=== PATIENT | female | born 1940 | race Caucasian/White ===

== ENCOUNTER 2022-05-02 18:23 | Inpatient (IN) | payer MEDICAID ==
[~2022-05-02] VITALS: Ht 152.4 cm; Wt 46.7 kg
[2022-05-02 18:42] VITALS: BP_SYST 128
[2022-05-02] MEDS ORDERED: NACL 0.9% 1,000 ML IV ONE (20:45)
[2022-05-02] MEDS ORDERED: cefTRIAXone 1 GM IVPB PREMIX 50 ML IV ONE (21:30)
[2022-05-02] MEDS ORDERED: NACL 0.9% 500 ML IV ONE (21:30)
[2022-05-02 21:39] LABS: BASOPHILS % (AUTO) 0.3 % (0.0-2.0); EOSINOPHILS # (AUTO) 0.1 K/uL (0.0-0.4); EOSINOPHILS % (AUTO) 0.9 % (0.0-4.0); HEMATOCRIT 27.2 % (36-48); HEMOGLOBIN 8.3 g/dL (12.0-16.0); LYMPHOCYTES # (AUTO) 1.4 K/uL (1.0-5.5); LYMPHOCYTES % (AUTO) 11.7 % (20.5-51.5); MEAN CORPUSCULAR HEMOGLOBIN 29 pg (27-31); MEAN CORPUSCULAR HGB CONC 31 % (32-36); MEAN CORPUSCULAR VOLUME 94 fL (79.0-98.0); MONOCYTES # (AUTO) 0.3 K/uL (0.0-1.0); MONOCYTES % (AUTO) 2.7 % (1.7-9.3); NEUTROPHILS # (AUTO) 9.9 K/uL (1.8-7.7); NEUTROPHILS % (AUTO) 84.4 % (40.0-70.0); PLATELET COUNT (AUTO) 308 K/uL (130-430); RED BLOOD CELL COUNT(AUTO) 2.89 MIL/uL (4.2-6.2); RED CELL DISTRIBUTION WIDTH 18.4 % (9.0-15.0); WHITE BLOOD COUNT (AUTO) 11.7 K/uL (4.8-10.8)
[2022-05-02 21:55] LABS: ALANINE AMINOTRANSFERASE 30 U/L (12-78); ALBUMIN 1.8 g/dL (3.4-4.8); ANION GAP 16 (5-15); ASPARTATE AMINOTRANSFERASE 17 U/L (10-37); CALCIUM 8.9 mg/dL (8.4-11.0); CREATININE 2.23 mg/dL (0.55-1.30); GLUCOSE 293 mg/dL (70-99); TOTAL BILIRUBIN 0.1 mg/dL (0.0-1.0); UREA NITROGEN, BLOOD 66 mg/dL (8-21)
[2022-05-02 22:02] LABS: CHLORIDE 129 mmol/L (98-107)
[2022-05-02] MEDS ORDERED: DIPHENHYDRAMINE INJ 50 MG/ML VIAL IVP ONE (22:15)
[2022-05-02] MEDS ORDERED: LORazepam 2 MG/ML VIAL IVP ONE (22:15)
[2022-05-03] MEDS ORDERED: cefTRIAXone 1 GM IVPB PREMIX 50 ML IV ONE (01:29)
[2022-05-03] MEDS: KCL 20 mEq in D5/0.45NS 1000mL 1,000 ML IV SCH ×2 (02:04→22:15)
[2022-05-03] MEDS ORDERED: ASCO500T20 PO (05:02)
[2022-05-03] MEDS ORDERED: VITD2000 PO (05:02)
[2022-05-03] MEDS ORDERED: AMLO2.5T2 PO (05:02)
[2022-05-03] MEDS ORDERED: LACT10SO6 PO (05:02)
[2022-05-03] MEDS ORDERED: MEGE20TA3 PO (05:02)
[2022-05-03] MEDS ORDERED: LIP40 PO (05:02)
[2022-05-03] MEDS ORDERED: ASPI-1393 PO (05:02)
[2022-05-03] MEDS ORDERED: ARGI1POW13 PO (05:02)
[2022-05-03] MEDS ORDERED: BENA-6 PO (05:02)
[2022-05-03] MEDS ORDERED: SENN8.6T19 PO (05:10)
[2022-05-03] MEDS ORDERED: ACET325T PO (05:10)
[2022-05-03] MEDS ORDERED: LEVO25TA2 PO (05:10)
[2022-05-03] MEDS ORDERED: POLY17PO4 PO (05:10)
[2022-05-03] MEDS ORDERED: AMIN30LI2 PO (05:10)
[2022-05-03] MEDS ORDERED: SPIR25TA6 PO (05:10)
[2022-05-03] MEDS ORDERED: TRAM50TA2 PO (05:10)
[2022-05-03] MEDS ORDERED: TAMS-11 PO (05:10)
[2022-05-03] MEDS ORDERED: CEFEPIME 1 GM/VIAL (MAXIPIME) ONE (08:18)
[2022-05-03] MEDS ORDERED: CEFEPIME 1 GM in D5W 50 ML IV SCH (09:00)
[2022-05-03] MEDS: CEFEPIME 1 GM in D5W 50 ML IV SCH (10:19)
[2022-05-03] MEDS ORDERED: hydrALAZINE HCL 20 MG/ML VIAL IVP PRN (19:15)
[2022-05-03 20:00] VITALS: BP_SYST 110
[2022-05-03] MEDS: ENOXAPARIN SODIUM 30 MG/0.3 ML SYRINGE SUBCUT SCH (22:16)
[2022-05-04] VITALS: BP_SYST 126
[2022-05-04] MEDS: KCL 20 mEq in D5/0.45NS 1000mL 1,000 ML IV SCH ×2 (05:27→15:30)
[2022-05-04 05:59] LABS: BASOPHILS # (AUTO) 0.1 K/uL (0.0-0.2); BASOPHILS % (AUTO) 0.7 % (0.0-2.0); EOSINOPHILS # (AUTO) 0.3 K/uL (0.0-0.4); EOSINOPHILS % (AUTO) 2.8 % (0.0-4.0); HEMATOCRIT 27.2 % (36-48); HEMOGLOBIN 8.2 g/dL (12.0-16.0); LYMPHOCYTES # (AUTO) 1.3 K/uL (1.0-5.5); LYMPHOCYTES % (AUTO) 13.6 % (20.5-51.5); MEAN CORPUSCULAR HEMOGLOBIN 29 pg (27-31); MEAN CORPUSCULAR HGB CONC 30 % (32-36); MEAN CORPUSCULAR VOLUME 96 fL (79.0-98.0); MONOCYTES # (AUTO) 0.3 K/uL (0.0-1.0); MONOCYTES % (AUTO) 3.6 % (1.7-9.3); NEUTROPHILS # (AUTO) 7.4 K/uL (1.8-7.7); NEUTROPHILS % (AUTO) 79.3 % (40.0-70.0); PLATELET COUNT (AUTO) 235 K/uL (130-430); RED BLOOD CELL COUNT(AUTO) 2.83 MIL/uL (4.2-6.2); RED CELL DISTRIBUTION WIDTH 18.9 % (9.0-15.0); WHITE BLOOD COUNT (AUTO) 9.3 K/uL (4.8-10.8)
[2022-05-04 06:13] LABS: ANION GAP 14 (5-15); CALCIUM 8.2 mg/dL (8.4-11.0); CREATININE 1.68 mg/dL (0.55-1.30); UREA NITROGEN, BLOOD 60 mg/dL (8-21)
[2022-05-04 06:25] LABS: CHLORIDE 128 mmol/L (98-107)
[2022-05-04 06:26] LABS: GLUCOSE 415 mg/dL (70-99)
[2022-05-04] MEDS ORDERED: INSULIN REGULAR, HUMAN 100 UNITS/ML, 3 ML VIAL SUBCUT ONE (06:45)
[2022-05-04 08:00] VITALS: BP_SYST 124
[2022-05-04] MEDS: CEFEPIME 1 GM in D5W 50 ML IV SCH (08:39)
[2022-05-04 11:20] VITALS: BP_SYST 110
[2022-05-04 13:41] VITALS: BP_SYST 122
[2022-05-04 16:19] VITALS: BP_SYST 148
[2022-05-04 20:00] VITALS: BP_SYST 146
[2022-05-04] MEDS: ENOXAPARIN SODIUM 30 MG/0.3 ML SYRINGE SUBCUT SCH (20:44)
[2022-05-05] VITALS: BP_SYST 128
[2022-05-05] MEDS: KCL 20 mEq in D5/0.45NS 1000mL 1,000 ML IV SCH ×3 (01:47→20:55)
[2022-05-05 05:11] LABS: BASOPHILS # (AUTO) 0.1 K/uL (0.0-0.2); BASOPHILS % (AUTO) 0.9 % (0.0-2.0); EOSINOPHILS # (AUTO) 0.4 K/uL (0.0-0.4); EOSINOPHILS % (AUTO) 4.5 % (0.0-4.0); HEMATOCRIT 24.6 % (36-48); HEMOGLOBIN 7.6 g/dL (12.0-16.0); LYMPHOCYTES # (AUTO) 1.3 K/uL (1.0-5.5); LYMPHOCYTES % (AUTO) 15.4 % (20.5-51.5); MEAN CORPUSCULAR HEMOGLOBIN 29 pg (27-31); MEAN CORPUSCULAR HGB CONC 31 % (32-36); MEAN CORPUSCULAR VOLUME 94 fL (79.0-98.0); MONOCYTES # (AUTO) 0.3 K/uL (0.0-1.0); MONOCYTES % (AUTO) 4.2 % (1.7-9.3); NEUTROPHILS # (AUTO) 6.2 K/uL (1.8-7.7); PLATELET COUNT (AUTO) 248 K/uL (130-430); RED BLOOD CELL COUNT(AUTO) 2.63 MIL/uL (4.2-6.2); RED CELL DISTRIBUTION WIDTH 18.2 % (9.0-15.0); WHITE BLOOD COUNT (AUTO) 8.2 K/uL (4.8-10.8)
[2022-05-05 05:40] LABS: ANION GAP 11 (5-15); CALCIUM 8.3 mg/dL (8.4-11.0); CREATININE 1.36 mg/dL (0.55-1.30); GLUCOSE 264 mg/dL (70-99); UREA NITROGEN, BLOOD 47 mg/dL (8-21)
[2022-05-05 05:50] LABS: CHLORIDE 129 mmol/L (98-107)
[2022-05-05 08:00] VITALS: BP_SYST 29
[2022-05-05 08:01] VITALS: BP_SYST 129
[2022-05-05] MEDS: CEFEPIME 1 GM in D5W 50 ML IV SCH (09:38)
[2022-05-05 11:24] VITALS: BP_SYST 145
[2022-05-05 16:00] VITALS: BP_SYST 95
[2022-05-05 20:00] VITALS: BP_SYST 127
[2022-05-05] MEDS: ENOXAPARIN SODIUM 30 MG/0.3 ML SYRINGE SUBCUT SCH (20:54)
[2022-05-06] VITALS: BP_SYST 107
[2022-05-06 05:36] LABS: BASOPHILS # (AUTO) 0.1 K/uL (0.0-0.2); BASOPHILS % (AUTO) 0.8 % (0.0-2.0); EOSINOPHILS # (AUTO) 0.2 K/uL (0.0-0.4); EOSINOPHILS % (AUTO) 1.8 % (0.0-4.0); HEMATOCRIT 25.8 % (36-48); LYMPHOCYTES % (AUTO) 11.5 % (20.5-51.5); MEAN CORPUSCULAR HEMOGLOBIN 29 pg (27-31); MEAN CORPUSCULAR HGB CONC 31 % (32-36); MEAN CORPUSCULAR VOLUME 93 fL (79.0-98.0); MONOCYTES # (AUTO) 0.2 K/uL (0.0-1.0); MONOCYTES % (AUTO) 2.8 % (1.7-9.3); NEUTROPHILS % (AUTO) 83.1 % (40.0-70.0); PLATELET COUNT (AUTO) 107 K/uL (130-430); RED BLOOD CELL COUNT(AUTO) 2.77 MIL/uL (4.2-6.2); RED CELL DISTRIBUTION WIDTH 17.7 % (9.0-15.0); WHITE BLOOD COUNT (AUTO) 8.4 K/uL (4.8-10.8)
[2022-05-06 05:44] LABS: INR 1.1 (0.8-1.2); PROTHROMBIN TIME 10.7 SECS (9.5-12.5)
[2022-05-06 06:05] LABS: ALANINE AMINOTRANSFERASE 41 U/L (12-78); ALBUMIN 1.5 g/dL (3.4-4.8); ANION GAP 14 (5-15); ASPARTATE AMINOTRANSFERASE 29 U/L (10-37); CALCIUM 8.3 mg/dL (8.4-11.0); CREATININE 1.19 mg/dL (0.55-1.30); GLUCOSE 346 mg/dL (70-99); TOTAL BILIRUBIN 0.2 mg/dL (0.0-1.0); UREA NITROGEN, BLOOD 39 mg/dL (8-21)
[2022-05-06 06:24] LABS: CHLORIDE 125 mmol/L (98-107)
[2022-05-06] MEDS: KCL 20 mEq in D5/0.45NS 1000mL 1,000 ML IV SCH ×2 (07:30→17:30)
[2022-05-06 08:00] VITALS: BP_SYST 154
[2022-05-06] MEDS: CEFEPIME 1 GM in D5W 50 ML IV SCH (09:00)
[2022-05-06] MEDS ORDERED: MEPERIDINE 50 MG/ML VIAL ONE (10:38)
[2022-05-06] MEDS ORDERED: MIDAZOLAM HCL 5 MG/5 ML VIAL ONE (10:39)
[2022-05-06 12:00] VITALS: BP_SYST 128
[2022-05-06] MEDS ORDERED: PANTOPRAZOLE SODIUM 40 MG/VIAL (PROTONIX) IVP ONE (14:30)
[2022-05-06 16:00] VITALS: BP_SYST 115
[2022-05-06] MEDS ORDERED: HALOPERIDOL LACTATE 5 MG/ML VIAL IM PRN (16:30)
[2022-05-06] MEDS ORDERED: INSULIN REGULAR, HUMAN 10 UNITS/0.1 ML, 3 ML VIAL SUBCUT PRN (16:30)
[2022-05-06] MEDS: INSULIN REGULAR, HUMAN 100 UNITS/ML, 3 ML VIAL (humuLIN R) SUBCUT PRN (18:14)
[2022-05-06 20:00] VITALS: BP_SYST 116
[2022-05-06] MEDS: ENOXAPARIN SODIUM 30 MG/0.3 ML SYRINGE SUBCUT SCH (20:22)
[2022-05-06] MEDS: PANTOPRAZOLE SODIUM 40 MG/VIAL (PROTONIX) IVP SCH (21:46)
[2022-05-07 01:06] VITALS: BP_SYST 123
[2022-05-07] MEDS: KCL 20 mEq in D5/0.45NS 1000mL 1,000 ML IV SCH ×2 (03:30→17:04)
[2022-05-07 08:00] VITALS: BP_SYST 127
[2022-05-07] MEDS: CEFEPIME 1 GM in D5W 50 ML IV SCH (09:53)
[2022-05-07] MEDS: PANTOPRAZOLE SODIUM 40 MG/VIAL (PROTONIX) IVP SCH ×2 (09:54→21:29)
[2022-05-07] MEDS: INSULIN REGULAR, HUMAN 100 UNITS/ML, 3 ML VIAL (humuLIN R) SUBCUT PRN ×3 (11:37→22:50)
[2022-05-07 11:54] VITALS: BP_SYST 121
[2022-05-07] MEDS ORDERED: LevALBUTEROL HCL 1.25 MG/0.5 ML *CONC.* VIAL.NEB (XOPENEX CONC.) INH PRN (12:15)
[2022-05-07] MEDS ORDERED: LevALBUTEROL HCL 1.25 MG/0.5 ML *CONC.* VIAL.NEB (XOPENEX CONC.) INH SCH (13:00)
[2022-05-07 15:07] LABS: BASOPHILS # (AUTO) 0.1 K/uL (0.0-0.2); BASOPHILS % (AUTO) 0.8 % (0.0-2.0); EOSINOPHILS # (AUTO) 0.3 K/uL (0.0-0.4); EOSINOPHILS % (AUTO) 3.3 % (0.0-4.0); HEMATOCRIT 25.1 % (36-48); HEMOGLOBIN 7.9 g/dL (12.0-16.0); LYMPHOCYTES # (AUTO) 1.2 K/uL (1.0-5.5); LYMPHOCYTES % (AUTO) 15.9 % (20.5-51.5); MEAN CORPUSCULAR HEMOGLOBIN 29 pg (27-31); MEAN CORPUSCULAR HGB CONC 32 % (32-36); MEAN CORPUSCULAR VOLUME 93 fL (79.0-98.0); MONOCYTES # (AUTO) 0.3 K/uL (0.0-1.0); NEUTROPHILS # (AUTO) 5.8 K/uL (1.8-7.7); PLATELET COUNT (AUTO) 219 K/uL (130-430); RED CELL DISTRIBUTION WIDTH 17.3 % (9.0-15.0); WHITE BLOOD COUNT (AUTO) 7.7 K/uL (4.8-10.8)
[2022-05-07 15:15] LABS: ALANINE AMINOTRANSFERASE 31 U/L (12-78); ALBUMIN 1.3 g/dL (3.4-4.8); ANION GAP 10 (5-15); ASPARTATE AMINOTRANSFERASE 24 U/L (10-37); CREATININE 1.22 mg/dL (0.55-1.30); GLUCOSE 197 mg/dL (70-99); TOTAL BILIRUBIN 0.1 mg/dL (0.0-1.0); UREA NITROGEN, BLOOD 26 mg/dL (8-21)
[2022-05-07 15:31] LABS: CHLORIDE 125 mmol/L (98-107)
[2022-05-07 16:15] VITALS: BP_SYST 127
[2022-05-07] MEDS: ACETAMINOPHEN 325 MG TABLET PO PRN (16:18)
[2022-05-07] MEDS: ENOXAPARIN SODIUM 30 MG/0.3 ML SYRINGE SUBCUT SCH (21:29)
[2022-05-07 21:30] VITALS: BP_SYST 131
[2022-05-08 00:36] VITALS: BP_SYST 130
[2022-05-08] MEDS: KCL 20 mEq in D5/0.45NS 1000mL 1,000 ML IV SCH ×2 (04:20→16:00)
[2022-05-08] MEDS: INSULIN REGULAR, HUMAN 100 UNITS/ML, 3 ML VIAL (humuLIN R) SUBCUT PRN ×3 (07:30→17:36)
[2022-05-08 08:00] VITALS: BP_SYST 137
[2022-05-08] MEDS: PANTOPRAZOLE SODIUM 40 MG/VIAL (PROTONIX) IVP SCH ×2 (09:00→20:55)
[2022-05-08] MEDS: CEFEPIME 1 GM in D5W 50 ML IV SCH (09:00)
[2022-05-08] MEDS: ACETAMINOPHEN 325 MG TABLET PO PRN (09:36)
[2022-05-08 11:39] VITALS: BP_SYST 148
[2022-05-08 17:16] VITALS: BP_SYST 131
[2022-05-08 20:00] VITALS: BP_SYST 128
[2022-05-08] MEDS: ENOXAPARIN SODIUM 30 MG/0.3 ML SYRINGE SUBCUT SCH (20:55)
[2022-05-09] MEDS: KCL 20 mEq in D5/0.45NS 1000mL 1,000 ML IV SCH ×2 (01:12→12:00)
[2022-05-09 04:00] VITALS: BP_SYST 135
[2022-05-09] MEDS: INSULIN REGULAR, HUMAN 100 UNITS/ML, 3 ML VIAL (humuLIN R) SUBCUT PRN (06:05)
[2022-05-09 06:49] LABS: BASOPHILS % (AUTO) 0.5 % (0.0-2.0); EOSINOPHILS # (AUTO) 0.2 K/uL (0.0-0.4); EOSINOPHILS % (AUTO) 2.9 % (0.0-4.0); HEMATOCRIT 23.4 % (36-48); HEMOGLOBIN 7.4 g/dL (12.0-16.0); LYMPHOCYTES # (AUTO) 0.9 K/uL (1.0-5.5); LYMPHOCYTES % (AUTO) 12.5 % (20.5-51.5); MEAN CORPUSCULAR HEMOGLOBIN 29 pg (27-31); MEAN CORPUSCULAR HGB CONC 32 % (32-36); MEAN CORPUSCULAR VOLUME 91 fL (79.0-98.0); MONOCYTES # (AUTO) 0.3 K/uL (0.0-1.0); MONOCYTES % (AUTO) 3.6 % (1.7-9.3); NEUTROPHILS # (AUTO) 5.7 K/uL (1.8-7.7); NEUTROPHILS % (AUTO) 80.5 % (40.0-70.0); PLATELET COUNT (AUTO) 231 K/uL (130-430); RED BLOOD CELL COUNT(AUTO) 2.56 MIL/uL (4.2-6.2); RED CELL DISTRIBUTION WIDTH 17.2 % (9.0-15.0)
[2022-05-09 07:42] LABS: ALANINE AMINOTRANSFERASE 40 U/L (12-78); ALBUMIN 1.3 g/dL (3.4-4.8); ANION GAP 9 (5-15); ASPARTATE AMINOTRANSFERASE 22 U/L (10-37); CALCIUM 7.8 mg/dL (8.4-11.0); CHLORIDE 116 mmol/L (98-107); CREATININE 1.05 mg/dL (0.55-1.30); GLUCOSE 365 mg/dL (70-99); TOTAL BILIRUBIN 0.1 mg/dL (0.0-1.0); UREA NITROGEN, BLOOD 21 mg/dL (8-21)
[2022-05-09 08:00] VITALS: BP_SYST 120
[2022-05-09] MEDS: PANTOPRAZOLE SODIUM 40 MG/VIAL (PROTONIX) IVP SCH (09:35)
[2022-05-09] MEDS: CEFEPIME 1 GM in D5W 50 ML IV SCH (09:37)
[2022-05-09 11:38] VITALS: BP_SYST 141
[2022-05-09 17:07] VITALS: BP_SYST 130
[2022-05-09 17:34] VITALS: BP_SYST 130
[2022-05-09 20:00] VITALS: BP_SYST 147
== END 2022-05-09 21:09 | DRG 241 ==
LOC: SED 18:23 → STU 22:28 → SMU 05-03 20:41
PROVIDERS: ADMIT Family Medicine; ATTEND Family Medicine
PROC: 0DH63UZ Insertion of Feeding Device into Stomach, Percutaneous Approach (ICD-10-PCS; principal; 2022-05-06 12:00)
PROC: 0DB78ZX Excision of Stomach, Pylorus, Via Natural or Artificial Opening Endoscopic, Diagnostic (ICD-10-PCS; 2022-05-06 12:00)
DX: K29.70 Gastritis, unspecified, without bleeding (principal); N17.0 Acute kidney failure with tubular necrosis; G93.41 Metabolic encephalopathy; R13.10 Dysphagia, unspecified; K22.10 Ulcer of esophagus without bleeding; K26.9 Duodenal ulcer, unspecified as acute or chronic, without hemorrhage or perforation; E86.0 Dehydration; E87.0 Hyperosmolality and hypernatremia; F03.90 Unspecified dementia, unspecified severity, without behavioral disturbance, psychotic disturbance, mood disturbance, and anxiety; N39.0 Urinary tract infection, site not specified; E78.5 Hyperlipidemia, unspecified; D64.9 Anemia, unspecified; J45.909 Unspecified asthma, uncomplicated; R62.7 Adult failure to thrive; Z20.822 Contact with and (suspected) exposure to COVID-19; Z86.73 Personal history of transient ischemic attack (TIA), and cerebral infarction without residual deficits
CPT/HCPCS: 36415; 43239; 43246; 71045; 80048; 80053; 83605; 83735; 85025; 85610-TC; 85730-TC; 87040; 87081; 92610-GN; 93005; 94640; 94760; 96361; 96365; 96375; 99285; C9113; G0378; J0692; J0696; J1200; J1630; J1650; J1815; J2060; J2175; J2250; J7060; J7612

== ENCOUNTER 2022-05-18 07:54 | Inpatient (IN) | payer MEDICAID ==
[2022-05-18] VITALS (13 sets, daily range): BP systolic 81–132
[~2022-05-18] VITALS: Ht 152.4 cm; Wt 59.0 kg
[~2022-05-18 07:54] MED LIST: ACET325T PO; AMIN30LI2 PO; AMLO2.5T2 PO; ARGI1POW13 PO; ASCO500T20 PO; ASPI-1393 PO; BENA-6 PO; LACT10SO6 PO; LEVO25TA2 PO; LIP40 PO; MEGE20TA3 PO; POLY17PO4 PO; SENN8.6T19 PO; SPIR25TA6 PO; TAMS-11 PO; TRAM50TA2 PO; VITD2000 PO
[2022-05-18] MEDS ORDERED: NACL 0.9% 1,000 ML IV ONE ×3 (08:15→13:30)
[2022-05-18 08:58] LABS: BASOPHILS # (AUTO) 0.1 K/uL (0.0-0.2); BASOPHILS % (AUTO) 0.4 % (0.0-2.0); EOSINOPHILS # (AUTO) 0.1 K/uL (0.0-0.4); EOSINOPHILS % (AUTO) 0.5 % (0.0-4.0); LYMPHOCYTES # (AUTO) 1.6 K/uL (1.0-5.5); LYMPHOCYTES % (AUTO) 10.6 % (20.5-51.5); MEAN CORPUSCULAR HEMOGLOBIN 28 pg (27-31); MEAN CORPUSCULAR HGB CONC 32 % (32-36); MEAN CORPUSCULAR VOLUME 86 fL (79.0-98.0); MONOCYTES # (AUTO) 0.8 K/uL (0.0-1.0); MONOCYTES % (AUTO) 5.5 % (1.7-9.3); NEUTROPHILS # (AUTO) 12.7 K/uL (1.8-7.7); PLATELET COUNT (AUTO) 440 K/uL (130-430); RED CELL DISTRIBUTION WIDTH 17.3 % (9.0-15.0); WHITE BLOOD COUNT (AUTO) 15.3 K/uL (4.8-10.8)
[2022-05-18 09:07] LABS: ANION GAP 9 (5-15); CALCIUM 7.9 mg/dL (8.4-11.0); CHLORIDE 103 mmol/L (98-107); CREATININE 1.72 mg/dL (0.55-1.30); GLUCOSE 159 mg/dL (70-99); UREA NITROGEN, BLOOD 85 mg/dL (8-21)
[2022-05-18 09:11] LABS: RED BLOOD CELL COUNT(AUTO) 1.75 MIL/uL (4.2-6.2)
[2022-05-18 09:12] LABS: HEMATOCRIT 15.1 % (36-48); HEMOGLOBIN 4.8 g/dL (12.0-16.0)
[2022-05-18 09:13] LABS: ALANINE AMINOTRANSFERASE 32 U/L (12-78); ALBUMIN 1.5 g/dL (3.4-4.8); ASPARTATE AMINOTRANSFERASE 21 U/L (10-37); TOTAL BILIRUBIN 0.1 mg/dL (0.0-1.0)
[2022-05-18 09:37] LABS: BILIRUBIN,URINE NEGATIVE (NEGATIVE); BLOOD, URINE NEGATIVE (NEGATIVE); CLARITY/URINE CLEAR (CLEAR); COLOR,URINE YELLOW (YELLOW); GLUCOSE,URINE NEGATIVE (NEGATIVE); KETONES,URINE NEGATIVE (NEGATIVE); LEUKOCYTE ESTERASE ,URINE NEGATIVE (NEGATIVE); NITRITE, URINE NEGATIVE (NEGATIVE); PH,URINE 7.5 (5.0-8.0); PROTEIN URINE NEGATIVE (NEGATIVE)
[2022-05-18] MEDS ORDERED: INSU100V7 SUBCUT (12:04)
[2022-05-18] MEDS ORDERED: SULF1TAB47 GT (12:04)
[2022-05-18] MEDS ORDERED: ZINC100T2 GT (12:04)
[2022-05-18] MEDS: KCL 20 mEq in D5NS 1000 mL 1,000 ML IV SCH ×3 (14:15→23:20)
[2022-05-18] MEDS ORDERED: ACETAMINOPHEN 325 MG TABLET PO PRN (19:45)
[2022-05-18] MEDS ORDERED: NON-FORMULARY MEDICATION (Amino Acids/Protein Hydrolys (Pro-Stat Liquid) 30 ML) PO SCH (21:00)
[2022-05-18] MEDS ORDERED: NON-FORMULARY MEDICATION (Arginine/Ascorbate Sod/Vite AC (Arginaid Powder) 1 EACH) PO SCH (21:00)
[2022-05-18] MEDS: PANTOPRAZOLE SODIUM 40 MG/VIAL (PROTONIX) IVP SCH (21:35)
[2022-05-18] MEDS: SENNOSIDES 8.6 MG TABLET PO SCH (21:38)
[2022-05-19] VITALS (20 sets, daily range): BP systolic 97–145
[2022-05-19] MEDS: KCL 20 mEq in D5NS 1000 mL 1,000 ML IV SCH ×2 (06:00→12:40)
[2022-05-19 06:28] LABS: BASOPHILS % (AUTO) 0.2 % (0.0-2.0); EOSINOPHILS % (AUTO) 0.1 % (0.0-4.0); HEMATOCRIT 40.3 % (36-48); HEMOGLOBIN 13.6 g/dL (12.0-16.0); LYMPHOCYTES # (AUTO) 1.3 K/uL (1.0-5.5); LYMPHOCYTES % (AUTO) 7.3 % (20.5-51.5); MEAN CORPUSCULAR HEMOGLOBIN 29 pg (27-31); MEAN CORPUSCULAR HGB CONC 34 % (32-36); MEAN CORPUSCULAR VOLUME 87 fL (79.0-98.0); MONOCYTES # (AUTO) 0.7 K/uL (0.0-1.0); MONOCYTES % (AUTO) 4.1 % (1.7-9.3); NEUTROPHILS # (AUTO) 15.2 K/uL (1.8-7.7); NEUTROPHILS % (AUTO) 88.3 % (40.0-70.0); PLATELET COUNT (AUTO) 330 K/uL (130-430); RED BLOOD CELL COUNT(AUTO) 4.62 MIL/uL (4.2-6.2); RED CELL DISTRIBUTION WIDTH 14.9 % (9.0-15.0); WHITE BLOOD COUNT (AUTO) 17.2 K/uL (4.8-10.8)
[2022-05-19] MEDS: LEVOTHYROXINE SODIUM 0.025 MG TABLET PO SCH (06:41)
[2022-05-19 06:43] LABS: TOTAL IRON BIND. CAPACITY 205 ug/dL (250-450)
[2022-05-19 06:54] LABS: ALANINE AMINOTRANSFERASE 56 U/L (12-78); ALBUMIN 1.6 g/dL (3.4-4.8); ANION GAP 12 (5-15); ASPARTATE AMINOTRANSFERASE 62 U/L (10-37); CALCIUM 7.6 mg/dL (8.4-11.0); CHLORIDE 109 mmol/L (98-107); CREATININE 1.38 mg/dL (0.55-1.30); GLUCOSE 266 mg/dL (70-99); UREA NITROGEN, BLOOD 70 mg/dL (8-21)
[2022-05-19] MEDS ORDERED: MEPERIDINE 50 MG/ML VIAL ONE (07:07)
[2022-05-19] MEDS ORDERED: MIDAZOLAM HCL 5 MG/5 ML VIAL ONE (07:07)
[2022-05-19] MEDS ORDERED: SIMETHICONE 40 MG/0.6 ML ML ONE (07:08)
[2022-05-19] MEDS ORDERED: SIMETHICONE 80 MG TAB.CHEW ONE (07:08)
[2022-05-19] MEDS: TAMSULOSIN HCL 0.4 MG CAP PO SCH (09:00)
[2022-05-19] MEDS: LACTULOSE 20 GM/30 ML UDC PO SCH (09:00)
[2022-05-19] MEDS ORDERED: NON-FORMULARY MEDICATION (Lactulose 30 GM) PO SCH (09:00)
[2022-05-19] MEDS: SENNOSIDES 8.6 MG TABLET PO SCH ×2 (09:00→21:00)
[2022-05-19] MEDS: ASCORBIC ACID 500 MG TABLET PO SCH (09:00)
[2022-05-19] MEDS: POLYETHYLENE GLYCOL 3350, 17 GM/ POWD.PACK PO SCH (09:00)
[2022-05-19] MEDS ORDERED: ZINC GLUCONATE GT SCH (09:00)
[2022-05-19] MEDS: CHOLECALCIFEROL (VITAMIN D3) 2,000 UNIT TABLET PO SCH (09:00)
[2022-05-19] MEDS: PANTOPRAZOLE SODIUM 40 MG/VIAL (PROTONIX) IVP SCH (09:39)
[2022-05-19] MEDS: cefTRIAXone 1 GM IVPB PREMIX 50 ML IV SCH (11:51)
[2022-05-19] MEDS: AZITHROMYCIN 500 MG in NS 250 ML IV SCH (12:19)
[2022-05-19] MEDS ORDERED: HALOPERIDOL LACTATE 5 MG/ML VIAL IVP ONE (13:30)
[2022-05-20] VITALS (15 sets, daily range): BP systolic 94–158
[2022-05-20] MEDS: KCL 20 mEq in D5NS 1000 mL 1,000 ML IV SCH ×4 (00:45→22:18)
[2022-05-20] MEDS: PANTOPRAZOLE SODIUM 40 MG/VIAL (PROTONIX) IVP SCH ×3 (05:39→22:13)
[2022-05-20 06:05] LABS: ANION GAP 8 (5-15); CALCIUM 7.9 mg/dL (8.4-11.0); CHLORIDE 117 mmol/L (98-107); CREATININE 1.11 mg/dL (0.55-1.30); GLUCOSE 182 mg/dL (70-99); UREA NITROGEN, BLOOD 48 mg/dL (8-21)
[2022-05-20] MEDS: LEVOTHYROXINE SODIUM 0.025 MG TABLET PO SCH (06:05)
[2022-05-20] MEDS ORDERED: MIDAZOLAM HCL 5 MG/5 ML VIAL ONE (07:35)
[2022-05-20] MEDS ORDERED: MEPERIDINE 50 MG/ML VIAL ONE (07:35)
[2022-05-20 07:49] LABS: BASOPHILS # (AUTO) 0.1 K/uL (0.0-0.2); BASOPHILS % (AUTO) 0.6 % (0.0-2.0); EOSINOPHILS # (AUTO) 0.2 K/uL (0.0-0.4); EOSINOPHILS % (AUTO) 1.1 % (0.0-4.0); HEMATOCRIT 36.4 % (36-48); HEMOGLOBIN 12.1 g/dL (12.0-16.0); LYMPHOCYTES # (AUTO) 0.7 K/uL (1.0-5.5); LYMPHOCYTES % (AUTO) 5.1 % (20.5-51.5); MEAN CORPUSCULAR HEMOGLOBIN 29 pg (27-31); MEAN CORPUSCULAR HGB CONC 33 % (32-36); MEAN CORPUSCULAR VOLUME 88 fL (79.0-98.0); MONOCYTES # (AUTO) 0.5 K/uL (0.0-1.0); MONOCYTES % (AUTO) 3.2 % (1.7-9.3); NEUTROPHILS # (AUTO) 13.1 K/uL (1.8-7.7); PLATELET COUNT (AUTO) 317 K/uL (130-430); RED BLOOD CELL COUNT(AUTO) 4.13 MIL/uL (4.2-6.2); RED CELL DISTRIBUTION WIDTH 15.4 % (9.0-15.0); WHITE BLOOD COUNT (AUTO) 14.5 K/uL (4.8-10.8)
[2022-05-20] MEDS: TAMSULOSIN HCL 0.4 MG CAP PO SCH (09:00)
[2022-05-20] MEDS: LACTULOSE 20 GM/30 ML UDC PO SCH (09:00)
[2022-05-20] MEDS: POLYETHYLENE GLYCOL 3350, 17 GM/ POWD.PACK PO SCH (09:00)
[2022-05-20] MEDS: SENNOSIDES 8.6 MG TABLET PO SCH ×2 (09:00→21:00)
[2022-05-20] MEDS: CHOLECALCIFEROL (VITAMIN D3) 2,000 UNIT TABLET PO SCH (09:00)
[2022-05-20] MEDS: ASCORBIC ACID 500 MG TABLET PO SCH (09:00)
[2022-05-20 11:06] LABS: FOLATE (FOLIC ACID) 6.3 ng/mL (>3.0)
[2022-05-20] MEDS: cefTRIAXone 1 GM IVPB PREMIX 50 ML IV SCH (13:13)
[2022-05-20] MEDS: AZITHROMYCIN 500 MG in NS 250 ML IV SCH (13:14)
[2022-05-20] MEDS: SUCRALFATE 1 GM TABLET GT SCH ×2 (17:00→22:12)
[2022-05-21] VITALS: BP_SYST 99
[2022-05-21] MEDS: LEVOTHYROXINE SODIUM 0.025 MG TABLET PO SCH (05:03)
[2022-05-21] MEDS: SUCRALFATE 1 GM TABLET GT SCH ×4 (05:03→20:38)
[2022-05-21] MEDS: KCL 20 mEq in D5NS 1000 mL 1,000 ML IV SCH ×2 (05:04→09:20)
[2022-05-21 06:01] LABS: BASOPHILS % (AUTO) 0.4 % (0.0-2.0); EOSINOPHILS # (AUTO) 0.2 K/uL (0.0-0.4); EOSINOPHILS % (AUTO) 1.5 % (0.0-4.0); HEMATOCRIT 39.3 % (36-48); HEMOGLOBIN 12.9 g/dL (12.0-16.0); LYMPHOCYTES # (AUTO) 0.7 K/uL (1.0-5.5); LYMPHOCYTES % (AUTO) 5.4 % (20.5-51.5); MEAN CORPUSCULAR HEMOGLOBIN 29 pg (27-31); MEAN CORPUSCULAR HGB CONC 33 % (32-36); MEAN CORPUSCULAR VOLUME 90 fL (79.0-98.0); MONOCYTES # (AUTO) 0.3 K/uL (0.0-1.0); MONOCYTES % (AUTO) 2.7 % (1.7-9.3); NEUTROPHILS # (AUTO) 10.9 K/uL (1.8-7.7); PLATELET COUNT (AUTO) 307 K/uL (130-430); WHITE BLOOD COUNT (AUTO) 12.1 K/uL (4.8-10.8)
[2022-05-21 06:14] LABS: ANION GAP 10 (5-15); CALCIUM 7.8 mg/dL (8.4-11.0); CHLORIDE 117 mmol/L (98-107); CREATININE 1.06 mg/dL (0.55-1.30); GLUCOSE 321 mg/dL (70-99); UREA NITROGEN, BLOOD 29 mg/dL (8-21)
[2022-05-21 09:13] VITALS: BP_SYST 130
[2022-05-21] MEDS: LACTULOSE 20 GM/30 ML UDC PO SCH (09:18)
[2022-05-21] MEDS: SENNOSIDES 8.6 MG TABLET PO SCH ×2 (09:18→20:38)
[2022-05-21] MEDS: PANTOPRAZOLE SODIUM 40 MG/VIAL (PROTONIX) IVP SCH ×2 (09:18→21:27)
[2022-05-21] MEDS: TAMSULOSIN HCL 0.4 MG CAP PO SCH (09:18)
[2022-05-21] MEDS: POLYETHYLENE GLYCOL 3350, 17 GM/ POWD.PACK PO SCH (09:18)
[2022-05-21] MEDS: CHOLECALCIFEROL (VITAMIN D3) 2,000 UNIT TABLET PO SCH (09:19)
[2022-05-21] MEDS: ASCORBIC ACID 500 MG TABLET PO SCH (09:19)
[2022-05-21 11:38] VITALS: BP_SYST 142
[2022-05-21] MEDS: cefTRIAXone 1 GM IVPB PREMIX 50 ML IV SCH (12:13)
[2022-05-21] MEDS: AZITHROMYCIN 500 MG in NS 250 ML IV SCH (13:10)
[2022-05-21 17:53] VITALS: BP_SYST 145
[2022-05-21 20:00] VITALS: BP_SYST 143
[2022-05-22] VITALS (8 sets, daily range): BP systolic 133–152
[2022-05-22 05:08] LABS: BASOPHILS # (AUTO) 0.1 K/uL (0.0-0.2); BASOPHILS % (AUTO) 0.7 % (0.0-2.0); EOSINOPHILS # (AUTO) 0.3 K/uL (0.0-0.4); EOSINOPHILS % (AUTO) 2.9 % (0.0-4.0); HEMATOCRIT 37.6 % (36-48); HEMOGLOBIN 12.6 g/dL (12.0-16.0); LYMPHOCYTES # (AUTO) 0.8 K/uL (1.0-5.5); LYMPHOCYTES % (AUTO) 8.1 % (20.5-51.5); MEAN CORPUSCULAR HEMOGLOBIN 30 pg (27-31); MEAN CORPUSCULAR HGB CONC 34 % (32-36); MEAN CORPUSCULAR VOLUME 89 fL (79.0-98.0); MONOCYTES # (AUTO) 0.5 K/uL (0.0-1.0); MONOCYTES % (AUTO) 4.6 % (1.7-9.3); NEUTROPHILS # (AUTO) 8.6 K/uL (1.8-7.7); NEUTROPHILS % (AUTO) 83.7 % (40.0-70.0); PLATELET COUNT (AUTO) 278 K/uL (130-430); RED BLOOD CELL COUNT(AUTO) 4.23 MIL/uL (4.2-6.2); RED CELL DISTRIBUTION WIDTH 15.8 % (9.0-15.0); WHITE BLOOD COUNT (AUTO) 10.3 K/uL (4.8-10.8)
[2022-05-22 05:17] LABS: ANION GAP 9 (5-15); CALCIUM 7.8 mg/dL (8.4-11.0); CHLORIDE 118 mmol/L (98-107); CREATININE 0.95 mg/dL (0.55-1.30); GLUCOSE 314 mg/dL (70-99); UREA NITROGEN, BLOOD 21 mg/dL (8-21)
[2022-05-22] MEDS: SUCRALFATE 1 GM TABLET GT SCH ×4 (07:16→20:21)
[2022-05-22] MEDS: LEVOTHYROXINE SODIUM 0.025 MG TABLET PO SCH (07:17)
[2022-05-22] MEDS: TAMSULOSIN HCL 0.4 MG CAP PO SCH (08:39)
[2022-05-22] MEDS: ASCORBIC ACID 500 MG TABLET PO SCH (08:39)
[2022-05-22] MEDS: LACTULOSE 20 GM/30 ML UDC PO SCH (08:39)
[2022-05-22] MEDS: SENNOSIDES 8.6 MG TABLET PO SCH ×2 (08:39→20:22)
[2022-05-22] MEDS: POLYETHYLENE GLYCOL 3350, 17 GM/ POWD.PACK PO SCH (08:39)
[2022-05-22] MEDS: PANTOPRAZOLE SODIUM 40 MG/VIAL (PROTONIX) IVP SCH ×2 (08:39→20:52)
[2022-05-22] MEDS: CHOLECALCIFEROL (VITAMIN D3) 2,000 UNIT TABLET PO SCH (08:40)
[2022-05-22] MEDS: cefTRIAXone 1 GM IVPB PREMIX 50 ML IV SCH (11:07)
[2022-05-22] MEDS: AZITHROMYCIN 500 MG in NS 250 ML IV SCH (12:27)
[2022-05-23] VITALS: BP_SYST 165
[2022-05-23] MEDS: SUCRALFATE 1 GM TABLET GT SCH ×3 (06:16→17:26)
[2022-05-23] MEDS: LEVOTHYROXINE SODIUM 0.025 MG TABLET PO SCH (06:16)
[2022-05-23 07:40] VITALS: BP_SYST 151
[2022-05-23] MEDS: SENNOSIDES 8.6 MG TABLET PO SCH (09:00)
[2022-05-23] MEDS: LACTULOSE 20 GM/30 ML UDC PO SCH (09:00)
[2022-05-23] MEDS: POLYETHYLENE GLYCOL 3350, 17 GM/ POWD.PACK PO SCH (09:00)
[2022-05-23] MEDS: PANTOPRAZOLE SODIUM 40 MG/VIAL (PROTONIX) IVP SCH (09:05)
[2022-05-23] MEDS: TAMSULOSIN HCL 0.4 MG CAP PO SCH (09:36)
[2022-05-23] MEDS: ASCORBIC ACID 500 MG TABLET PO SCH (09:36)
[2022-05-23] MEDS: CHOLECALCIFEROL (VITAMIN D3) 2,000 UNIT TABLET PO SCH (09:38)
[2022-05-23 11:06] VITALS: BP_SYST 141
[2022-05-23] MEDS: cefTRIAXone 1 GM IVPB PREMIX 50 ML IV SCH (12:34)
[2022-05-23] MEDS: AZITHROMYCIN 500 MG in NS 250 ML IV SCH (13:26)
[2022-05-23 17:14] VITALS: BP_SYST 136
[2022-05-23 19:42] VITALS: BP_SYST 152
== END 2022-05-23 21:10 | DRG 242 ==
LOC: SED 07:54 → SIC 09:55 → STU 05-20 15:37 → SIC 05-20 17:49 → STU 05-20 18:14
PROVIDERS: ADMIT Family Medicine; ATTEND Family Medicine
PROC: 30233N1 Transfusion of Nonautologous Red Blood Cells into Peripheral Vein, Percutaneous Approach (ICD-10-PCS; principal; 2022-05-18)
PROC: 0DB58ZX Excision of Esophagus, Via Natural or Artificial Opening Endoscopic, Diagnostic (ICD-10-PCS; 2022-05-20)
PROC: 0DB78ZX Excision of Stomach, Pylorus, Via Natural or Artificial Opening Endoscopic, Diagnostic (ICD-10-PCS; 2022-05-20)
PROC: 0DB68ZX Excision of Stomach, Via Natural or Artificial Opening Endoscopic, Diagnostic (ICD-10-PCS; 2022-05-20)
DX: K22.11 Ulcer of esophagus with bleeding (principal); N17.0 Acute kidney failure with tubular necrosis; G93.41 Metabolic encephalopathy; E43 Unspecified severe protein-calorie malnutrition; J18.9 Pneumonia, unspecified organism; K92.0 Hematemesis; F03.90 Unspecified dementia, unspecified severity, without behavioral disturbance, psychotic disturbance, mood disturbance, and anxiety; K25.4 Chronic or unspecified gastric ulcer with hemorrhage; D50.0 Iron deficiency anemia secondary to blood loss (chronic); E11.9 Type 2 diabetes mellitus without complications; K26.4 Chronic or unspecified duodenal ulcer with hemorrhage; E86.0 Dehydration; Z66 Do not resuscitate; I10 Essential (primary) hypertension; R13.10 Dysphagia, unspecified; Z20.822 Contact with and (suspected) exposure to COVID-19; E03.9 Hypothyroidism, unspecified; E78.5 Hyperlipidemia, unspecified; K44.9 Diaphragmatic hernia without obstruction or gangrene; Z86.73 Personal history of transient ischemic attack (TIA), and cerebral infarction without residual deficits; Z93.1 Gastrostomy status; Z79.82 Long term (current) use of aspirin; Z79.899 Other long term (current) drug therapy; Z68.25 Body mass index [BMI] 25.0-25.9, adult
CPT/HCPCS: 36415; 43239; 71045; 80048; 80053; 81003; 82607; 82728; 82746; 83540; 83550; 83605; 83735; 84484; 85025; 86886; 86900; 86901; 86920; 87040; 87081; 87086; 87101; 88305; 88312; 88313; 93005; 96360; 96361; 99291; C9113; G0378; J0456; J0696; J1630; J2175; J2250; J7050; P9021

== ENCOUNTER 2022-05-28 01:36 | Inpatient (IN) | payer MEDICAID ==
[~2022-05-28] VITALS: Ht 162.6 cm; Wt 47.3 kg
[2022-05-28 01:36] VITALS: BP_SYST 104
[~2022-05-28 01:36] MED LIST changes: -ASPI-1393 PO; +INSU100V7 SUBCUT; -MEGE20TA3 PO; -SPIR25TA6 PO; -TAMS-11 PO; +ZINC100T2 GT
--- NOTE | 2022-05-28 01:36 | NUR ---
BROUGHT IN BY [facility] AND PLACED IN BED, TRIAGED. REPORT GIVEN TO GRACIELA
--- NOTE | 2022-05-28 01:40 | NUR ---
Dr. Gonzales at bedside examining the patient.
[2022-05-28] MEDS ORDERED: GASTROGRAFIN 120 ML ONE (01:57)
--- NOTE | 2022-05-28 02:00 | NUR ---
Portable x-ray done at bedside.
--- NOTE | 2022-05-28 02:52 | NUR ---
[facility] CALLED AND SPOKE WITH ALLISON AND SAID THAT IT WILL BE AFTER 629 FOR VEGETABLE FARM MANAGER WILL CALL US BACK WITH ACCURATE ETA
--- NOTE | 2022-05-28 02:56 | NUR ---
[id number]
--- NOTE | 2022-05-28 04:09 | NUR ---
[facility] CALLED AND SAID THE EARLIEST THEY HAVE IS 1100 BUT THEY WILL LEAVE IT OPEN TO SEE IF THEY CAN FIND ONE WITH A SOONER INDUSTRIAL WELDER.
[2022-05-28] MEDS ORDERED: DIPHENHYDRAMINE HCL 12.5 MG/5 ML UDC GT ONE (04:45)
--- NOTE | 2022-05-28 07:00 | NUR ---
Report received from shift supervisor RN for continuity of care. Patient stable.
--- NOTE | 2022-05-28 07:35 | NUR ---
[facility] called to confirm transport. Will call back with ETA
--- NOTE | 2022-05-28 09:10 | NUR ---
Report given to KETTY HEALY for continuity of care. Patient in stable condition.
--- NOTE | 2022-05-28 10:00 | NUR ---
ASSUMED CARE FROM MALI HEALY. PT STABLE AT THIS TIME. SLEEPING. NAD. BINDER INTACT. AWAIT TRANSPORT BACK TO FACILITY. SPOKE W/ [facility] [phone] FOR TRANSPORT TO ROOM 22A.
--- NOTE | 2022-05-28 11:00 | NUR ---
PT NOTED TO HAVE DARK GROUND EXCESSIVE EMESIS. AIRWAY PATENCY MAINTAINED. YANKER SUCTION UTILIZED TO CLEAR AIRWAY. NO ADVENTITIOUS LUNG SOUNDS NOTED AFTER VOMITING. COMFORT MEASURES AND SUPPORTIVE CARE INITIATED. ERMD SUMMONED TO BEDSIDE. ORDERS NOTED.
[2022-05-28 11:46] LABS: BASOPHILS # (AUTO) 0.1 K/uL (0.0-0.2); BASOPHILS % (AUTO) 0.6 % (0.0-2.0); EOSINOPHILS % (AUTO) 0.3 % (0.0-4.0); HEMATOCRIT 38.8 % (36-48); HEMOGLOBIN 13.1 g/dL (12.0-16.0); LYMPHOCYTES # (AUTO) 1.1 K/uL (1.0-5.5); LYMPHOCYTES % (AUTO) 8.3 % (20.5-51.5); MEAN CORPUSCULAR HEMOGLOBIN 30 pg (27-31); MEAN CORPUSCULAR HGB CONC 34 % (32-36); MEAN CORPUSCULAR VOLUME 88 fL (79.0-98.0); MONOCYTES # (AUTO) 0.7 K/uL (0.0-1.0); MONOCYTES % (AUTO) 5.7 % (1.7-9.3); NEUTROPHILS % (AUTO) 85.1 % (40.0-70.0); PLATELET COUNT (AUTO) 397 K/uL (130-430); RED BLOOD CELL COUNT(AUTO) 4.42 MIL/uL (4.2-6.2); RED CELL DISTRIBUTION WIDTH 15.2 % (9.0-15.0); WHITE BLOOD COUNT (AUTO) 12.9 K/uL (4.8-10.8)
[2022-05-28 12:14] LABS: ALANINE AMINOTRANSFERASE 38 U/L (12-78); ALBUMIN 1.7 g/dL (3.4-4.8); ANION GAP 8 (5-15); ASPARTATE AMINOTRANSFERASE 42 U/L (10-37); CALCIUM 8.5 mg/dL (8.4-11.0); CHLORIDE 98 mmol/L (98-107); CREATININE 1.07 mg/dL (0.55-1.30); GLUCOSE 147 mg/dL (70-99); LIPASE 68 U/L (73-393); TOTAL BILIRUBIN 0.4 mg/dL (0.0-1.0); UREA NITROGEN, BLOOD 22 mg/dL (8-21)
[2022-05-28 12:15] LABS: PROTHROMBIN TIME 10.4 SECS (9.5-12.5)
[2022-05-28] MEDS ORDERED: MEGE400O5 PO (12:25)
[2022-05-28] MEDS ORDERED: TAMS0.4C96 PO (12:25)
[2022-05-28] MEDS ORDERED: RALO60TA13 PO (12:25)
[2022-05-28] MEDS ORDERED: SUCR1TAB2 PO (12:25)
[2022-05-28] MEDS ORDERED: SPIR25TA6 PO (12:25)
[2022-05-28] MEDS ORDERED: ASPI-1393 PO (12:25)
--- NOTE | 2022-05-28 12:25 | NUR ---
Medication reconciliation completed with information provided by LUANN MAHONEY. Any prior medication reconciliation on file was reviewed and corrected.
[2022-05-28] MEDS ORDERED: OMEP20CA15 PO (12:55)
[2022-05-28] MEDS ORDERED: PANTOPRAZOLE SODIUM 40 MG/VIAL (PROTONIX) IVP ONE (15:15)
[2022-05-28] MEDS ORDERED: NACL 0.9% 1,000 ML IV SCH (16:15)
--- NOTE | 2022-05-28 16:18 | NUR ---
Admit bed requested Patient will be admitted to care of . Admitted to MS unit. Diagnosis COFFEE GROUND EMESIS Inpatient (Yes or No) YES Observation (Yes or No) NO Orientation concerns or request close to nursing station (Yes or No) YES Covid Status NEGATIVE On vent or bipap NO Isolation requirements NO Needs a sitter NO From Home (Yes or if No enter name of facility) LUANN MAHONEY Requires Dialysis (Yes or No) NO Med Rec Completed (Yes of No) YES
--- NOTE | 2022-05-28 16:37 | NUR ---
ATTEMPTED REPORT CALLED TO Kathy HEALY. STATES WILL CALL BACK IN 5 MIN. PT CONDITION REMAINS UNCHANGED. NO FURTHER VOMITING. COMPLETE BED AND DIAPER CHANGE DONE X 3 DURING ED COURSE. VSS. PENDING TRANSPORT TO FLOOR. TO CALL PT ALF (NATHALIE [facility]AL[facility] [phone]).
--- NOTE | 2022-05-28 16:46 | NUR ---
UPDATE GIVEN TO BRINDA AT ASSISTED. INFORMED RN THAT PT WOULD BE IN PATIENT TO MED/SURG.
--- NOTE | 2022-05-28 17:42 | NUR ---
CONSULTATION PAGED REASON FOR CONSULTATION: COFFWEE GROUND EMESIS WAS CONSULT CALLED? Y PERSON WHO WAS NOTIFIED:GERRY CONSULTING PHYSICIAN: YONNY VALDERRAMA (ALTAGRACIA DIXON PAR[employer]IC) ACADEMY EDUCATION DIRECTOR SPECIALTY: GI ACADEMY EDUCATION DIRECTOR PHONE NUMBER: [phone] REQUESTING PHYSICIAN: RENO ANGULO
[2022-05-28 17:57] VITALS: BP_SYST 122
--- NOTE | 2022-05-28 18:00 | NUR ---
RECEIVED PATIENT FROM ER. TOOK 7 PICTURES OF WOUNDS, CLEANED PATIENT HAS SHE HAD A VERY WATERY BOWL MOVEMENT. SET UP IV FLUIDS NORMAL SALINE @100MLS/HR. PATIENT HAS A G-TUBE. G-TUBE PUMP AT BEDSIDE. PATIENT DIET IS GLUCERNA 1.2 @ 55MLS/HR. WILL ENDORSE TO [place] MAKEUP ARTIST NURSE.
--- NOTE | 2022-05-28 19:15 | NUR ---
CLOSING NOTES: PATIENT IN BED LOOKING OUTSIDE WINDOW. NO S/S OF DISTRESS OR PAIN REPORTED. IV FLUIDS RUNNING. BREATHING IS EVEN AND UNLABORED ON RA 97%. EDUCATED PATIENT ON USE OF CALL LIGHT. ALL NEEDS MET AT THIS TIME, SAFETY CHECKS MADE AND CALL LIGHT WITHIN REACH. WILL ENDORSE TO TURPENTINER NURSE.
[2022-05-28 20:00] VITALS: BP_SYST 97
[2022-05-28] MEDS ORDERED: LACTULOSE 20 GM/30 ML UDC PO PRN (20:00)
[2022-05-28] MEDS ORDERED: ONDANSETRON HCL 4 MG/2 ML VIAL IVP PRN (20:15)
[2022-05-28 20:53] LABS: BASOPHILS % (AUTO) 0.4 % (0.0-2.0); EOSINOPHILS % (AUTO) 0.2 % (0.0-4.0); HEMATOCRIT 33.7 % (36-48); LYMPHOCYTES # (AUTO) 1.3 K/uL (1.0-5.5); MEAN CORPUSCULAR HEMOGLOBIN 30 pg (27-31); MEAN CORPUSCULAR HGB CONC 33 % (32-36); MEAN CORPUSCULAR VOLUME 91 fL (79.0-98.0); MONOCYTES # (AUTO) 0.8 K/uL (0.0-1.0); MONOCYTES % (AUTO) 7.2 % (1.7-9.3); NEUTROPHILS # (AUTO) 9.5 K/uL (1.8-7.7); NEUTROPHILS % (AUTO) 81.2 % (40.0-70.0); PLATELET COUNT (AUTO) 307 K/uL (130-430); RED BLOOD CELL COUNT(AUTO) 3.72 MIL/uL (4.2-6.2); RED CELL DISTRIBUTION WIDTH 15.1 % (9.0-15.0); WHITE BLOOD COUNT (AUTO) 11.7 K/uL (4.8-10.8)
[2022-05-28] MEDS ORDERED: PANTOPRAZOLE SODIUM 40 MG/VIAL (PROTONIX) IVP SCH (21:00)
[2022-05-28] MEDS ORDERED: PANTOPRAZOLE SODIUM 40 MG/VIAL (PROTONIX) ONE ×2 (21:50→22:11)
[2022-05-28] MEDS: PANTOPRAZOLE SODIUM 40 MG in NS 50 ML IV SCH (22:08)
[2022-05-28] MEDS: D5/0.45 NS 1,000 ML IV SCH (22:19)
[2022-05-28] MEDS: ALPRAZolam 0.25 MG TABLET GT PRN (22:30)
[2022-05-28] MEDS: traMADol HCL HCL 50 MG TABLET (ULTRAM) GT PRN (22:30)
[2022-05-29] MEDS ORDERED: PANTOPRAZOLE SODIUM 40 MG/VIAL (PROTONIX) ONE (02:21)
[2022-05-29 02:54] VITALS: BP_SYST 118
[2022-05-29] MEDS: PANTOPRAZOLE SODIUM 40 MG in NS 50 ML IV SCH ×4 (03:32→20:17)
[2022-05-29] MEDS: LEVOTHYROXINE SODIUM 0.025 MG TABLET GT SCH (06:36)
--- NOTE | 2022-05-29 06:59 | NUR ---
PT AWAKE AND ALERT. DJIBOUTIAN SPEAKING.C/O LEG PAIN, MEDICATED ULTRAM 50 MG VIA GT AND XANAX. THEN PT SLEPT. BILATERAL HEEL WOUND WITH MEPILEX DRESSING. GT INTACT-KEPT ABDOMINAL BINDER. PT PULLED IV OUT LAST NIGHT. 18G ANGIOCATH ON LEFT AC AND SECURED WITH ROLL OF FREDDIE. PT HAD SMALL AMOUNT OF BM- DARK GREENISH/YELLOW LOOSE TOOL. BS-WNL. MAINTAINED NPO. CONTINUED PROTONIX DRIP AT 10ML/HR AND D51/2NS AT 80 ML/HR.
[2022-05-29] MEDS ORDERED: SUCRALFATE 1 GM/10 ML UDC GT SCH (07:00)
[2022-05-29 08:00] VITALS: BP_SYST 146
--- NOTE | 2022-05-29 09:33 | NUR ---
DR LEHMAN IN AND ORDERED NOTHING GIVEN BY G TUBE UNTIL SEEN BY GI PHYSICIAN.
[2022-05-29 09:35] VITALS: BP_SYST 125
[2022-05-29] MEDS: ATORVASTATIN 20 MG TABLET GT SCH (09:35)
[2022-05-29] MEDS: amLODIPine BESYLATE 5 MG TABLET GT SCH (09:35)
[2022-05-29] MEDS: lisinopriL 20 MG TABLET GT SCH (09:36)
[2022-05-29 10:09] LABS: BASOPHILS # (AUTO) 0.1 K/uL (0.0-0.2); BASOPHILS % (AUTO) 1.1 % (0.0-2.0); EOSINOPHILS # (AUTO) 0.1 K/uL (0.0-0.4); HEMATOCRIT 27.9 % (36-48); HEMOGLOBIN 9.5 g/dL (12.0-16.0); LYMPHOCYTES # (AUTO) 1.2 K/uL (1.0-5.5); LYMPHOCYTES % (AUTO) 10.4 % (20.5-51.5); MEAN CORPUSCULAR HEMOGLOBIN 30 pg (27-31); MEAN CORPUSCULAR HGB CONC 34 % (32-36); MEAN CORPUSCULAR VOLUME 88 fL (79.0-98.0); MONOCYTES # (AUTO) 0.9 K/uL (0.0-1.0); MONOCYTES % (AUTO) 7.6 % (1.7-9.3); NEUTROPHILS # (AUTO) 9.5 K/uL (1.8-7.7); NEUTROPHILS % (AUTO) 79.9 % (40.0-70.0); PLATELET COUNT (AUTO) 337 K/uL (130-430); RED BLOOD CELL COUNT(AUTO) 3.15 MIL/uL (4.2-6.2); WHITE BLOOD COUNT (AUTO) 11.9 K/uL (4.8-10.8)
[2022-05-29 10:16] LABS: ANION GAP 5 (5-15); CALCIUM 7.7 mg/dL (8.4-11.0); CHLORIDE 103 mmol/L (98-107); CREATININE 0.87 mg/dL (0.55-1.30); GLUCOSE 224 mg/dL (70-99); UREA NITROGEN, BLOOD 24 mg/dL (8-21)
[2022-05-29 10:28] LABS: ALANINE AMINOTRANSFERASE 25 U/L (12-78); ALBUMIN 1.3 g/dL (3.4-4.8); ASPARTATE AMINOTRANSFERASE 23 U/L (10-37); TOTAL BILIRUBIN 0.4 mg/dL (0.0-1.0)
[2022-05-29] MEDS: D5/0.45 NS 1,000 ML IV SCH (11:15)
[2022-05-29] MEDS: SUCRALFATE 1 GM/10 ML UDC GT SCH ×2 (13:00→21:00)
[2022-05-29 20:09] VITALS: BP_SYST 133
[2022-05-29] MEDS: traMADol HCL HCL 50 MG TABLET (ULTRAM) GT PRN (22:07)
[2022-05-30] VITALS: BP_SYST 119
[2022-05-30] MEDS: PANTOPRAZOLE SODIUM 40 MG in NS 50 ML IV SCH ×3 (01:05→09:08)
--- NOTE | 2022-05-30 05:37 | NUR ---
pt awake and confused. GT feeding with glucerna 1.2 advanced 10 ml every 6 hr Goal 60 ml/hr- now at 40 ml/hr. Increase at 10:00 am to 50 ml/hr. Flush water 100 ml every 6 hr. Kept elevated HOB @ 30 deg to prevent aspiration. Romeo heel pressure wound with foam dressing. Pending wound consult. No s/sx of bleeding.
[2022-05-30] MEDS: LEVOTHYROXINE SODIUM 0.025 MG TABLET GT SCH (06:04)
[2022-05-30] MEDS: ACETAMINOPHEN 325 MG TABLET PO PRN ×2 (06:05→14:37)
[2022-05-30] MEDS: ALPRAZolam 0.25 MG TABLET GT PRN (06:05)
[2022-05-30 06:06] LABS: BASOPHILS # (AUTO) 0.1 K/uL (0.0-0.2); BASOPHILS % (AUTO) 1.1 % (0.0-2.0); EOSINOPHILS # (AUTO) 0.2 K/uL (0.0-0.4); EOSINOPHILS % (AUTO) 2.6 % (0.0-4.0); HEMATOCRIT 27.9 % (36-48); HEMOGLOBIN 9.5 g/dL (12.0-16.0); LYMPHOCYTES # (AUTO) 1.1 K/uL (1.0-5.5); LYMPHOCYTES % (AUTO) 12.8 % (20.5-51.5); MEAN CORPUSCULAR HEMOGLOBIN 30 pg (27-31); MEAN CORPUSCULAR HGB CONC 34 % (32-36); MEAN CORPUSCULAR VOLUME 87 fL (79.0-98.0); MONOCYTES # (AUTO) 0.8 K/uL (0.0-1.0); MONOCYTES % (AUTO) 9.2 % (1.7-9.3); NEUTROPHILS # (AUTO) 6.3 K/uL (1.8-7.7); NEUTROPHILS % (AUTO) 74.3 % (40.0-70.0); PLATELET COUNT (AUTO) 356 K/uL (130-430); RED BLOOD CELL COUNT(AUTO) 3.19 MIL/uL (4.2-6.2); RED CELL DISTRIBUTION WIDTH 15.3 % (9.0-15.0); WHITE BLOOD COUNT (AUTO) 8.5 K/uL (4.8-10.8)
[2022-05-30] MEDS: INSULIN ASPART 100 UNITS/ML, 10 ML VIAL (NovoLOG) SUBCUT PRN ×2 (06:07→17:23)
[2022-05-30] MEDS: D5/0.45 NS 1,000 ML IV SCH ×3 (06:26→23:59)
[2022-05-30 06:41] LABS: ANION GAP 3 (5-15); CALCIUM 7.7 mg/dL (8.4-11.0); CHLORIDE 102 mmol/L (98-107); CREATININE 0.79 mg/dL (0.55-1.30); GLUCOSE 248 mg/dL (70-99); UREA NITROGEN, BLOOD 16 mg/dL (8-21)
[2022-05-30] MEDS: lisinopriL 20 MG TABLET GT SCH (09:10)
[2022-05-30] MEDS: amLODIPine BESYLATE 5 MG TABLET GT SCH (09:11)
[2022-05-30] MEDS: SUCRALFATE 1 GM/10 ML UDC GT SCH ×4 (09:11→21:56)
[2022-05-30] MEDS: ATORVASTATIN 20 MG TABLET GT SCH (09:24)
[2022-05-30 11:25] VITALS: BP_SYST 127
--- NOTE | 2022-05-30 12:12 | NUR ---
Discharge planning; patient from [facility]. CM faxed packet to [facility] f#[phone]. will follow up
[2022-05-30] MEDS ORDERED: POTASSIUM CHLORIDE 20 MEQ/PKT PACKET GT ONE (14:45)
--- NOTE | 2022-05-30 15:25 | NUR ---
WOUND EVALUATION: Late note for 05/30/2022 at 1525 secondary to patient care. Wound Consult received from Dr. Cunningham. Thank you, Dr. Cunningham, for the consult. Patient received in a Hollister Bed with an IsoFlex DEYSI mattress, awake, drowsy, and confused. Patient is unable to turn in bed independently. Vinnie Score is a 12. Past Medical History: Hypertension, Hypothyroidism, Dementia, Malnutrition with Dysphagia and G-tube. Recent Labs: WBC 8.5, RBC 3.19, hemoglobin 9.5, hematocrit 27.9, sodium 135, potassium 3.3, CO2 30, glucose 248, calcium 7.7, alkaline phosphatase 153.98, Serum Total Protein 5.5, albumin 1.3. Microbiology: MRSA screen results negative. Intrinsic factors that delay wound healing: diabetes, malnutrition, dementia. Extrinsic factors that delay wound healing: Decreased mobility. Wound Assessment: 1. Right Lateral Heel Pressure ulcer of unknown prior stage, present on admission. Wound bed has open blister with 10% black tissue, 90% pink tissue. No odor, scant yellow drainage. Periwound intact. Wound measures 3.5 cm x 3.5 cm. Recommend: Cleanse wound with normal saline. Apply Sureprep to periwound. Apply Venelex ointment to open areas of wound bed. Avoid foam dressing. Wrap with Oniel wrap. Perform wound care daily, and as needed for dressing soiling or dislodgment. 2. Right Dorsal Foot near Ankle Joint Line: Unstageable pressure ulcer, present on admission. Wound bed has 100% soft black leathery tissue, No odor. No drainage. Alie-wound intact. Measures 0.3 cm x 0.3 cm. Recommend: [place] site with Betadine. Allow Betadine to air dry. Cover with foam dressing. Perform wound care daily, and as needed for dressing soiling or dislodgement. Offload site with pillow at all times. 3. Right Lateral Foot: Unstageable pressure ulcer, present on admission. Wound bed has 100% soft black leathery tissue, No odor. No drainage. Alie-wound intact. Measures 0.2 cm x 0.3 cm. Recommend: [place] site with Betadine. Allow Betadine to air dry. Cover with foam dressing. Perform wound care daily, and as needed for dressing soiling or dislodgement. Offload site with pillow at all times. 4. Right Medial First Metatarsal Head: Unstageable pressure ulcer, present on admission. Wound bed has 100% soft black leathery tissue, No odor. No drainage. Alie-wound intact. Measures 0.9 cm x 0.7 cm. Recommend: [place] site with Betadine. Allow Betadine to air dry. Cover with foam dressing. Perform wound care daily, and as needed for dressing soiling or dislodgement. Offload site with pillow at all times. 5. Left Dorsal Great Toe: Unstageable pressure ulcer, present on admission. Wound bed has 100% soft black leathery tissue, No odor. No drainage. Alie-wound intact. Dry, stable. Measures 1.0 cm x 1.1 cm. Recommend: [place] site with Betadine. Allow Betadine to air dry. Cover with foam dressing. Perform wound care daily, and as needed for dressing soiling or dislodgement. 6. Left Medial Heel Unstageable pressure ulcer, present on admission. Wound bed is 100% black eschar, No odor. No drainage. Alie-wound intact. Dry, stable. Measures 2.4 cm x 2.2 cm. Recommend: [place] site with Betadine. Allow Betadine to air dry. Cover with foam dressing. Perform wound care daily, and as needed for dressing soiling or dislodgement. Offload site with pillow at all times. 7. Left Medial Great Toe: Unstageable pressure ulcer, present on admission. Wound bed has 100% soft black leathery tissue, No odor. No drainage. Alie-wound intact. Dry, stable. Measures 2.2 cm x 0.8 cm. Recommend: [place] site with Betadine. Allow Betadine to air dry. Cover with foam dressing. Perform wound care daily, and as needed for dressing soiling or dislodgement. 8. Left Medial 1st Metatarsal Head: Unstageable pressure ulcer, present on admission. Wound bed has 100% soft black leathery tissue, No odor. No drainage. Alie-wound intact. Dry, stable. Measures 0.7 cm x 0.4 cm. Recommend: [place] site with Betadine. Allow Betadine to air dry. Cover with foam dressing. Perform wound care daily, and as needed for dressing soiling or dislodgement. Offload site with pillow at all times. 9. Left Medial Second Toe: Unstageable pressure ulcer, present on admission. Wound bed has 100% soft black leathery tissue, No odor. No drainage. Alie-wound intact. Dry, stable. Measures 0.7 cm x 0.4 cm. Recommend: [place] site with Betadine. Allow Betadine to air dry. Cover with foam dressing. Perform wound care daily, and as needed for dressing soiling or dislodgement. Offload site with pillow at all times. 10. Left Distal Anterior Burt: Dry scabs and excoriations, present on admission. No odor, no drainage. Dry, stable. 11. Left Anterior Lateral Knee: Dry scabs and excoriations, present on admission. No odor, no drainage. Dry, stable. Recommend: [place] sites with Betadine daily to keep dry and leave open to air. Perform wound care daily. Also recommend: Reposition patient every 2 hours with pillow support and off-load pressure areas with pillows for pressure re-distribution. Offload, elevate and float bilateral heels with pillows. Perform skin care and monitor skin integrity Q shift. Use moisture barrier cream on buttocks and other moisture susceptible areas QID and as needed for soiling. Initiate low air-loss therapy by adding an air pump to the low air loss mattress.
--- NOTE | 2022-05-30 17:11 | NUR ---
Patient accepted back to [facility] room 22A. Transportation arranged with [facility] [phone]. ETA shrimp picker 8pm. call the car to update pt RN with contracted ambulance. reservation # [phone]. will notify family
[2022-05-30 17:30] VITALS: BP_SYST 121
--- NOTE | 2022-05-30 17:43 | NUR ---
paged dr landis for final discharge order
--- NOTE | 2022-05-30 17:49 | NUR ---
PATIENT EVALUATED BY WOUND CARE NURSE TODAY. NOTES TO FOLLOW.
--- NOTE | 2022-05-30 19:00 | NUR ---
Received pt in bed.Pt is AOX1.On RA.Not in respiratory distress noted.G tube in place with ongoing glucerna at 50ml/hr.IV L AC g18,patent and intact.Changed and repositioned pt.
[2022-05-30 20:00] VITALS: BP_SYST 144
[2022-05-30 20:19] VITALS: BP_SYST 110
[2022-05-30] MEDS ORDERED: PANTOPRAZOLE GRANULES PACKET 40 MG GT SCH (21:00)
--- NOTE | 2022-05-30 22:00 | NUR ---
Kept pt clean and dry.repositioned pt.
[2022-05-31] VITALS: BP_SYST 139
[2022-05-31] MEDS: traMADol HCL HCL 50 MG TABLET (ULTRAM) GT PRN ×2 (00:15→12:22)
[2022-05-31] MEDS: INSULIN LISPRO SLIDING SCALE 100 UNITS/ML, 3 ML VIAL (humaLOG) SUBCUT PRN ×2 (00:35→05:55)
--- NOTE | 2022-05-31 02:00 | NUR ---
Pt is awake and confused.Reoriented to date, time and place.Observed Safety precautions.Bed in lowest position.
[2022-05-31] MEDS: LEVOTHYROXINE SODIUM 0.025 MG TABLET GT SCH (06:00)
[2022-05-31 06:12] LABS: BASOPHILS # (AUTO) 0.1 K/uL (0.0-0.2); EOSINOPHILS # (AUTO) 0.2 K/uL (0.0-0.4); EOSINOPHILS % (AUTO) 2.6 % (0.0-4.0); HEMATOCRIT 26.6 % (36-48); HEMOGLOBIN 9.2 g/dL (12.0-16.0); LYMPHOCYTES # (AUTO) 1.2 K/uL (1.0-5.5); LYMPHOCYTES % (AUTO) 13.1 % (20.5-51.5); MEAN CORPUSCULAR HEMOGLOBIN 30 pg (27-31); MEAN CORPUSCULAR HGB CONC 35 % (32-36); MEAN CORPUSCULAR VOLUME 87 fL (79.0-98.0); MONOCYTES # (AUTO) 0.6 K/uL (0.0-1.0); NEUTROPHILS # (AUTO) 7.2 K/uL (1.8-7.7); NEUTROPHILS % (AUTO) 77.3 % (40.0-70.0); PLATELET COUNT (AUTO) 355 K/uL (130-430); RED BLOOD CELL COUNT(AUTO) 3.05 MIL/uL (4.2-6.2); RED CELL DISTRIBUTION WIDTH 14.9 % (9.0-15.0); WHITE BLOOD COUNT (AUTO) 9.3 K/uL (4.8-10.8)
[2022-05-31 06:48] LABS: ANION GAP 7 (5-15); CALCIUM 7.6 mg/dL (8.4-11.0); CHLORIDE 100 mmol/L (98-107); CREATININE 0.82 mg/dL (0.55-1.30); GLUCOSE 244 mg/dL (70-99); UREA NITROGEN, BLOOD 14 mg/dL (8-21)
[2022-05-31] MEDS ORDERED: LANSOPRAZOLE 30 MG CAPSULE.DR GT SCH (07:00)
--- NOTE | 2022-05-31 07:38 | NUR ---
Pt is not in respiratory distress noted.Call light within reach.Bed in lowest position.
--- NOTE | 2022-05-31 09:04 | NUR ---
CM follow up with [facility] [phone], reservation # [phone]. There were no available units for transportation yesterday at 8pm. [facility] made transportation arrangements with [facility] for this morning at 10:00 am. reservation # [phone]. will notify NIRAJ
--- NOTE | 2022-05-31 09:24 | NUR ---
Called [facility]. Handed off report to Ariella SALDANA. Ambulance scrap picker time is 10am
--- NOTE | 2022-05-31 11:11 | NUR ---
ELAINA spoke with Doris at [facility] for an ambulance ETA. Myles from [facility] gave an ETA for pharmacy picking tech of 40 minutes
[2022-05-31 11:48] VITALS: BP_SYST 130
--- NOTE | 2022-05-31 12:28 | NUR ---
transport delayed. called the nurse (pascual), new transport car pick up driver time at 2pm.
--- NOTE | 2022-05-31 14:50 | NUR ---
CM follow up with [facility] [phone] to get transport ETA; dispatch reports another 20-40min delay.
--- NOTE | 2022-05-31 15:56 | NUR ---
PATIENT DC VIA TRANSPORT TEAM TO [facility]. IV OUT. ALL THE BELONGINGS TAKEN WITH THE PATIENT.
== END 2022-05-31 15:55 | DRG 241 ==
LOC: SED 01:36 → SMU 16:12
PROVIDERS: ADMIT Internal Medicine; ATTEND Internal Medicine
PROC: 0DP6XUZ Removal of Feeding Device from Stomach, External Approach (ICD-10-PCS; principal; 2022-05-28)
PROC: 0DH63UZ Insertion of Feeding Device into Stomach, Percutaneous Approach (ICD-10-PCS; 2022-05-28)
DX: K25.4 Chronic or unspecified gastric ulcer with hemorrhage (principal); E43 Unspecified severe protein-calorie malnutrition; Z43.1 Encounter for attention to gastrostomy; F03.90 Unspecified dementia, unspecified severity, without behavioral disturbance, psychotic disturbance, mood disturbance, and anxiety; E11.9 Type 2 diabetes mellitus without complications; E03.9 Hypothyroidism, unspecified; D64.9 Anemia, unspecified; Z20.822 Contact with and (suspected) exposure to COVID-19; I10 Essential (primary) hypertension; M81.0 Age-related osteoporosis without current pathological fracture; Z86.73 Personal history of transient ischemic attack (TIA), and cerebral infarction without residual deficits; Z87.19 Personal history of other diseases of the digestive system; Z68.1 Body mass index [BMI] 19.9 or less, adult
CPT/HCPCS: 36415; 74240-TC; 76376; 80048; 80053; 82941; 82962; 83690; 83735; 85025; 85610-TC; 85730-TC; 86886; 86900; 86901; 87081; 99285; C9113; Q9963